=== PATIENT | male | born 1975 | race Hispanic/Latino ===

== ENCOUNTER 2017-09-10 13:24 | Emergency (ER) | payer BC ==
--- NOTE | 2017-09-10 14:12 | RAD ---
2 VIEW CHEST: Date: 09/10/17 COMPARISON: 07/06/15. INDICATION: Progressive cough. FINDINGS: No consolidation, effusion, or pneumothorax. Elevation right hemidiaphragm remains. Cardiac silhouett e is stable. IMPRESSION: Stable chest, without focal consolidation. POS: [facility]
== END 2017-09-10 14:26 | disposition home or self-care (01) ==
LOC: ERS 13:24
DX: J06.9 Acute upper respiratory infection, unspecified (principal); E78.5 Hyperlipidemia, unspecified; E78.2 Mixed hyperlipidemia; I10 Essential (primary) hypertension; J45.909 Unspecified asthma, uncomplicated; F41.9 Anxiety disorder, unspecified; F17.210 Nicotine dependence, cigarettes, uncomplicated; Z79.899 Other long term (current) drug therapy
CPT/HCPCS: 71046

== ENCOUNTER 2017-10-15 08:49 | Day surgery (SDC) | payer BC ==
[2017-10-14 13:07] VITALS: BMI 42.8
--- NOTE | 2017-10-15 00:54 | HP ---
SHORT STAY HISTORY AND PHYSICAL DATE OF ADMISSION: 10/15/2017 HISTORY OF PRESENT ILLNESS: This is a 41-year-old Latin-[place] male with worsening acid reflux. 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 He also complains of hoarse of voice. He also has coughing off and on. The patient also gives history of some dysphagia off and on. He feel s the food like meat and bread hang up in the esophagus. The patient comes in for an EGD, because of the above reason. ALLERGIES: None. MEDICAL ILLNESSES: 1. Depression and anxiety. 2. Hyperlipidemia. 3. Hypothyroidism. 4. Chronic acid reflux. 5. Sleep apnea. PHYSICAL EXAMINATION: VITAL SIGNS: Pulse is 70, blood pressure 130/80. HEENT: Conjunctivae clear. NECK: Supple. CARDIOVASCULAR SYSTEM: First and second heart sounds normal. LUNGS: Clear to auscultation. ABDOMEN: Soft to palpate. No organomegaly. No tenderness. No masses. ADMITTING DIAGNOSES: 1. Chronic acid reflux. 2. Dysphagia. PLAN: EGD and possible dilation.
[2017-10-15] MEDS ORDERED: PROPOFOL 200 MG/20 ML VIAL ONE (12:40)
[2017-10-15] MEDS ORDERED: Lidocaine 1% PF 5 ML VIAL ONE (12:40)
--- NOTE | 2017-10-15 22:49 | OP ---
DATE OF PROCEDURE: 10/15/2017 OPERATIVE PROCEDURES: 1. Esophagogastroduodenoscopy. 2. Esophageal dilation with Smith sizes 48 and 50-Palauan in diameter. PREOPERATIVE DIAGNOSES: 1. Chronic acid reflux. 2. Dysphagia. POSTOPERATIVE DIAGNOSES: 1. Normal esophageal mucosa. 2. No definite stricture seen. 3. Normal stomach and duodenum. 4. Empiric dilation carried out with a Smith size 48 and 50-Palauan with no resistance. PROCEDURE NOTE: The patient was placed on his left lateral position and was given sedation by Anesth esia Department. A Pentax video gastroscope under direct vision was passed down the oropharynx, past the GE junction, into the stomach and subsequently into descending duodenum. The vocal cords appear ed very healthy. Although the patient complained of dysphagia, on the endoscopy, no esophageal narro wing seen, although the mucosa appeared normal throughout the esophagus. The GE junction, no patholo gy seen. Retroflexion failed to show any fundus or cardia. The gastric body and gastric antrum, inc isura angularis, no pathology seen. The scope advanced into the duodenal bulb, descending duodenum. No pathology seen. The stomach was decompressed and the scope removed. Because of history of solid food dysphagia, an empiric dilation done using Smith dilator sizes 48 and 50-Palauan. Both passed down with no resistance. DISCHARGE PLANNING: This is a 41-year-old Latin-[place] male who came for EGD and dilation because of dysphagia and also chronic acid reflux. The EGD showed, no esophageal stricture. Also, the mucos a appeared normal. The patient underwent EGD and empiric dilation with sizes 48 and 50-Palauan Lao y dilator. DISCHARGE RECOMMENDATIONS: 1. May resume medicine as before. 2. He is advised to call me if he develops chest pain, hematemesis, melena, or fever. 3. To come back to clinic in 2 weeks.
== END 2017-10-15 13:55 | disposition home or self-care (01) ==
LOC: SDC 08:49
PROVIDERS: ATTEND Internal Medicine Gastroenterology
PROC: 0DJ08ZZ Inspection of Upper Intestinal Tract, Via Natural or Artificial Opening Endoscopic (ICD-10-PCS; principal; 2017-10-15)
PROC: 0D757ZZ Dilation of Esophagus, Via Natural or Artificial Opening (ICD-10-PCS; principal; 2017-10-15)
DX: R13.10 Dysphagia, unspecified (principal); K21.9 Gastro-esophageal reflux disease without esophagitis; F32.9 Major depressive disorder, single episode, unspecified; F41.9 Anxiety disorder, unspecified; E03.9 Hypothyroidism, unspecified; G47.30 Sleep apnea, unspecified; Z79.899 Other long term (current) drug therapy
CPT/HCPCS: J2001; J2704

== ENCOUNTER 2019-10-22 21:39 | Emergency (ER) | payer BC, OTHER ==
[2019-10-22] MEDS ORDERED: Acetaminophen 500 MG TAB ONE (22:31)
== END 2019-10-22 22:38 | disposition home or self-care (01) ==
LOC: ERS 21:39
DX: I10 Essential (primary) hypertension (principal); F43.0 Acute stress reaction; E78.5 Hyperlipidemia, unspecified; J45.909 Unspecified asthma, uncomplicated; F41.9 Anxiety disorder, unspecified; Z87.891 Personal history of nicotine dependence; Z79.899 Other long term (current) drug therapy
CPT/HCPCS: 99283

== ENCOUNTER 2019-10-24 13:19 | Emergency (ER) | payer BC, OTHER ==
[2019-10-24 13:46] LABS: #Eosinphils 0.1 thou/uL (0.0-0.7); #Lymphocytes 1.8 thou/uL (1.20-3.40); #Monocytes 0.4 thou/uL (0.11-0.59); #Neutrophils 9.2 thou/uL (1.40-6.50); %Basophils 0.3 % (0.0-1.0); %Eosinophils 0.5 % (0.0-10.0); %Lymphocytes 15.6 % (21.0-51.0); %Monocytes 3.2 % (0.0-10.0); %Neutrophils 80.4 % (42.0-75.0); Hemoglobin 16.4 g/dL (14.0-18.0); Mean Corpuscular HGB CONC 35.1 g/dL (32.0-36.0); Mean Corpuscular Volume 85.5 fL (78.0-98.0); Mean Platelet Volume 7.2 fL (7.4-10.4); Platelet Count 353 thou/uL (130-400); RBC Distribution Width 12.4 % (11.5-14.5); Red Blood Cell (RBC) Count 5.46 mill/uL (4.70-6.10); White Blood Cell (WBC) Count 11.4 thou/uL (4.8-10.8)
--- NOTE | 2019-10-24 13:51 | RAD ---
EXAM: Single view of the chest HISTORY: Neck and back pain; dizziness COMPARISON: 07/06/2015 FINDINGS: Single view of the chest shows a normal sized cardiomediastinal silhouette. There is no santiago dence of consolidation, mass, or pleural effusion. The bones are unremarkable. IMPRESSION: No evidence of acute cardiopulmonary disease
[2019-10-24] MEDS ORDERED: Lorazepam 2 MG/ML VIAL ONE (13:54)
[2019-10-24] MEDS ORDERED: Ketorolac Tromethamine 30 MG/ML VIAL ONE (13:57)
[2019-10-24] MEDS ORDERED: Aspirin Chewable 81 MG TAB ONE (13:57)
[2019-10-24 14:05] LABS: ALT (SGPT) 16 U/L (8-55); AST (SGOT) 15 U/L (5-34); Albumin 4.7 g/dL (3.5-5.0); Alkaline Phosphatase 59 U/L (40-110); Anion Gap 15 mmol/L (10-20); BUN (Urea Nitrogen) 12 mg/dL (8.9-20.6); Bilirubin, Total 0.8 mg/dL (0.2-1.2); CK (CPK) 190 U/L (30-200); Calc. Creatinine Clearance 0 mL/min (70-130); Calcium 10.2 mg/dL (7.8-10.44); Carbon Dioxide 21 mmol/L (22-29); Chloride 105 mmol/L (98-107); Estimated GFR-MDRD Greater than 90; Globulin 2.9 g/dL (2.4-3.5); Glucose 139 mg/dL (70-105); Potassium 3.8 mmol/L (3.5-5.1); Protein, Total 7.6 g/dL (6.0-8.3); Sodium 137 mmol/L (136-145)
== END 2019-10-24 14:39 | disposition home or self-care (01) ==
LOC: ERS 13:19
DX: S29.012A Strain of muscle and tendon of back wall of thorax, initial encounter (principal); F43.9 Reaction to severe stress, unspecified; R00.2 Palpitations; E78.2 Mixed hyperlipidemia; I10 Essential (primary) hypertension; J45.909 Unspecified asthma, uncomplicated; F41.9 Anxiety disorder, unspecified; Z87.891 Personal history of nicotine dependence; X58.XXXA Exposure to other specified factors, initial encounter
CPT/HCPCS: 71045; 80053; 82550; 84484; 85025; 93005; 94760; 96374; 96375; J1885; J2060